=== PATIENT | female | born 1975 | race American Indian/Alaskan Native ===

== ENCOUNTER 2017-03-12 15:37 | Inpatient (IN) | payer MEDICAID ==
[2017-03-12 16:07] LABS: Basophils % (Auto) 0.7 % (0.0-1.8); Mean Corpuscular HGB Conc 30 % (30-34); Platelet Count 292 K/mm3 (140-440); Red Blood Count 5.26 M/mm3 (3.65-5.03); Red Cell Distribution Width 18.9 % (13.2-15.2); White Blood Count 11.3 K/mm3 (4.5-11.0)
[2017-03-12 16:10] LABS: Hematocrit 34.9 % (30.3-42.9); Hemoglobin 10.6 gm/dl (10.1-14.3); Mean Corpuscular Hemoglobin 20 pg (28-32); Mean Corpuscular Volume 66 fl (79-97)
[2017-03-12 16:35] LABS: Anion Gap 17 mmol/L; BUN/Creatinine Ratio 13; Blood Urea Nitrogen 9 mg/dL (7-17); Calcium 9.8 mg/dL (8.4-10.2); Carbon Dioxide 29 mmol/L (22-30); Chloride 99.3 mmol/L (98-107); Glucose 84 mg/dL (65-100); Potassium 3.4 mmol/L (3.6-5.0); Sodium 142 mmol/L (137-145)
--- NOTE | 2017-03-12 18:16 | Emergency Department Report ---
ED Chest Pain HPI - General Chief Complaint: High BP Stated Complaint: SHORTNES OF BREATH Time Seen by Provider: 03/12/17 17:43 Source: patient Mode of arrival: Ambulatory Limitations: No Limitations - History of Present Illness Initial Comments: 41 YO [place] FEMALE WITH C/O CHEST PAIN AND SHORTNESS OF BREATH FOR ONE WEEK. PT BLOOD PRESSURE WAS `198/122 ON ARRIVAL AND SHE HAS BEEN NONCOMPLIANT WITH HER BLOOD PRESSURE MEDICATION BECAUSE OF LACK OF INSURANCE . SHE BELIEVES THAT SHE SHOULD BE OF HCTZ 25MG PO QD Complaint: chest pain -: Gradual, week(s) (1) Onset: during rest Pain Location: substernal Pain Radiation: none Severity scale (0 -10): 5 - Related Data Previous Rx's Medication Instructions Recorded Last Taken Type Acetaminophen/Codeine [Tylenol #3] 1 tab PO Q6H PRN #15 tab 02/03/13 Unknown Rx Methocarbamol [Robaxin] 750 mg PO Q8H PRN #21 tablet 02/03/13 Unknown Rx Naproxen Sodium (Nf) [Anaprox DS] 550 mg PO BID PRN #14 tablet 02/03/13 Unknown Rx Hydrochlorothiazide [HCTZ] 25 mg PO QDAY #14 tablet 03/12/17 Unknown Rx Potassium Chloride 10 meq PO QDAY #14 capsule.er 03/12/17 Unknown Rx cloNIDine [Catapres] 0.1 mg PO QDAY #14 tablet 03/12/17 Unknown Rx Allergies Allergy/AdvReac Type Severity Reaction Status Date / Time No Known Allergies Allergy Unverified 02/03/13 09:09 Heart Score - HEART Score History: Slightly suspicious EKG: Normal Age: < 45 Risk factors: 1-2 risk factors Troponin: < normal limit HEART Score: 1 ED Review of Systems ROS: Stated complaint: SHORTNES OF BREATH Other details as noted in HPI ED Past Medical Hx - Past Medical History Previous Medical History?: Yes Hx Hypertension: Yes (untreated secondary to no insurance) - Surgical History Past Surgical History?: Yes Hx Cholecystectomy: Yes Additional Surgical History: right ovary, bilat knee - Social History Smoking Status: Never Smoker Substance Use Type: Alcohol - Medications Home Medications: Home Medications Medication Instructions Recorded Confirmed Last Taken Type Acetaminophen/Codeine [Tylenol #3] 1 tab PO Q6H PRN #15 tab 02/03/13 Unknown Rx Methocarbamol [Robaxin] 750 mg PO Q8H PRN #21 tablet 02/03/13 Unknown Rx Naproxen Sodium (Nf) [Anaprox DS] 550 mg PO BID PRN #14 tablet 02/03/13 Unknown Rx Hydrochlorothiazide [HCTZ] 25 mg PO QDAY #14 tablet 03/12/17 Unknown Rx Potassium Chloride 10 meq PO QDAY #14 capsule.er 03/12/17 Unknown Rx cloNIDine [Catapres] 0.1 mg PO QDAY #14 tablet 03/12/17 Unknown Rx ED Physical Exam - General Limitations: No Limitations ED Course Vital Signs 03/12/17 03/12/17 03/12/17 15:43 17:26 17:27 Temperature 98.5 F Pulse Rate 100 H 92 H Respiratory 18 15 15 Rate Blood Pressure 198/122 Blood Pressure 186/118 [Left] O2 Sat by Pulse 99 98 98 Oximetry 03/12/17 03/12/17 18:15 19:34 Temperature Pulse Rate 90 87 Respiratory 23 Rate Blood Pressure 172/101 187/117 Blood Pressure [Left] O2 Sat by Pulse 98 Oximetry ABBEY score - Abbey Score Age > 65: (0) No Aspirin use within the Past 7 Days: (0) No 3 or more CAD Risk Factors: (0) No 2 or more Angina events in past 24 hrs: (1) Yes Known CAD with more than 50% Stenosis: (0) No Elevated Cardiac Markers: (0) No ST Deviation Greater than 0.5mm: (0) No ABBEY Score: 1 ED Medical Decision Making - Lab Data Result diagrams: 03/12/17 15:54 03/12/17 15:54 - EKG Data -: EKG Interpreted by Ok EKG shows normal: sinus rhythm (MILD ATRIAL ENLARGEMENT), axis, intervals, QRS complexes, ST-T waves - Radiology Data Radiology results: report reviewed (CXR: MILD CARDIOMEGALY CTA CHEST: NO PE , NO AORTIC INJURY) - Medical Decision Making CTA OF CHEST NEGATIVE, AND CARDIAC ENZYMES ARE NEGATIVE , CXR SHOWS MILD CARDIOMEGALY., AN THERE IS NO CHF. I WILL D/C HER HOME ON BP MEDICATION TO FOLLOW UP WITH DR BANKS HER NEW PCP Critical care attestation.: If time is entered above; I have spent that time in minutes in the direct care of this critically ill patient, excluding procedure time. ED Disposition Clinical Impression: Hypokalemia, Cardiomegaly Chest pain Qualifiers: Chest pain type: unspecified Qualified Code(s): R07.9 - Chest pain, unspecified Dyspnea Qualifiers: Dyspnea type: unspecified Qualified Code(s): R06.00 - Dyspnea, unspecified Obesity Qualifiers: Obesity type: due to excess calories Serious obesity comorbidity presence: with serious comorbidity Body mass index: BMI 40.0-44.9 Disposition: TO HOME OR SELFCARE Is pt being admited?: No Does the pt Need Aspirin: No Condition: Stable Instructions: Chest Pain (ED), Obesity (ED), Hypertension (ED) Additional Instructions: PLEASE FOLLOW UP WITH YOUR DR TOMORROW AND RETURN TO THE ER IF PAIN RETURNS OR SHORTNESS OF BRATH RETURNS OR INCREASES Prescriptions: cloNIDine [Catapres] 0.1 mg PO QDAY #14 tablet Hydrochlorothiazide [HCTZ] 25 mg PO QDAY #14 tablet Potassium Chloride 10 meq PO QDAY #14 capsule.er Referrals: PRIMARY CAREMD [Primary Care Provider] - 3-5 Days Time of Disposition: 20:07
--- NOTE | 2017-03-12 18:35 | XRay Report ---
FINAL REPORT PROCEDURE: XR CHEST ROUTINE 2V TECHNIQUE: PA and lateral chest radiographs were obtained. CPT 40531 HISTORY: Shortness of breath. COMPARISON: No prior studies are available for comparison. FINDINGS: Heart: Mild cardiomegaly. Mediastinum/Vessels: Normal. Lungs/Pleural space: Normal. Mild elevation of the right diaphragm. Bony thorax: Mild degenerative changes of the spine. Other: IMPRESSION: Mild cardiomegaly. No radiographic evidence of acute cardiopulmonary disease.
[2017-03-12] MEDS ORDERED: K-DUR PO ONE (19:05)
[2017-03-12] MEDS ORDERED: APRESOLINE IV ONE (19:09)
--- NOTE | 2017-03-12 19:53 | Cat Scan Report ---
FINAL REPORT PROCEDURE: CT ANGIO CHEST TECHNIQUE: Computerized tomographic angiography of the chest was performed after the IV injection of iodinated nonionic contrast including image processing. The image data was postprocessed using 2-dimensional multiplanar reformatted (MPR) and 3-dimensional (MIP and/or volume rendered) techniques. HISTORY: CHEST PAIN and hypertension COMPARISON: No prior studies are available for comparison. FINDINGS: Heart and pericardium: No pericardial effusion or thickening. Thoracic aorta: No aneurysm or dissection is identified. Pulmonary vasculature: Limited evaluation of the pulmonary arteries due to patient motion artifact. No large central emboli are seen. Limited evaluation of the distal branches however. Lymph nodes: No enlarged thoracic lymph nodes. Lungs: Normal. Pleural space: No effusion, thickening, or pneumothorax. Musculoskeletal structures: No significant abnormality. Upper abdominal structures: No acute abnormality. IMPRESSION: No evidence of aortic aneurysm or dissection. Limited evaluation of distal pulmonary arterial branches. No large central emboli are seen.
[2017-03-12] MEDS ORDERED: CATAPRES PO ONE (20:10)
--- NOTE | 2017-03-12 22:03 | History and Physical Report ---
History of Present Illness Date of examination: 03/12/17 Date of admission: 03/12/2017 Chief complaint: chief complaint; left-sided chest pain for 1 week and also shortness of breath for 1 week. History of present illness: History of Present Illness: 41-year-old -Hungarian female with history of hypertension and arthritis comes in for left-sided chest pain of one-week duration. Pain has been intermittent in nature. Pain is about 8 on a scale of 1-10. Dull in character.patient states that it is associated with diaphoresis and palpitations and shortness of breath. No nausea or vomiting. No fever no chills. No recent travel.shortness of breath on walking for about a block. No orthopnea. No PND attacks. Past Medical History Previous Medical History?: Yes Hx Hypertension: Yes (untreated secondary to no insurance) - Surgical History Past Surgical History?: Yes Hx Cholecystectomy: Yes Additional Surgical History: right ovary, bilat knee - Social History Smoking Status: Never Smoker Substance Use Type: Alcohol Family history hypertension - Medications Home Medications: Home Medications Medication Instructions Recorded Confirmed Last Taken Type Acetaminophen/Codeine [Tylenol #3] 1 tab PO Q6H PRN #15 tab 02/03/13 Unknown Rx Methocarbamol [Robaxin] 750 mg PO Q8H PRN #21 tablet 02/03/13 Unknown Rx Naproxen Sodium (Nf) [Anaprox DS] 550 mg PO BID PRN #14 tablet 02/03/13 Unknown Rx Hydrochlorothiazide [HCTZ] 25 mg PO QDAY #14 tablet 03/12/17 Unknown Rx Potassium Chloride 10 meq PO QDAY #14 capsule.er 03/12/17 Unknown Rx cloNIDine [Catapres] 0.1 mg PO QDAY #14 tablet 03/12/17 Unknown Rx Past History Past Medical History: hypertension Medications and Allergies Allergies Allergy/AdvReac Type Severity Reaction Status Date / Time No Known Allergies Allergy Unverified 02/03/13 09:09 Home Medications Medication Instructions Recorded Confirmed Last Taken Type No Known Home Medications [No 03/12/17 03/12/17 Unknown History Reported Home Medications] Review of Systems All systems: negative Constitutional: no weight loss, no weight gain, no fever, no chills, no sweats, no night sweats Ears, nose, mouth and throat: no hoarseness, no sore throat, no swelling in mouth, no swelling in throat Breasts: deferred Cardiovascular: chest pain, palpitations, shortness of breath, dyspnea on exertion Respiratory: no cough, no cough with sputum, no excessive sputum, no hemoptysis , no shortness of breath Gastrointestinal: no abdominal pain, no nausea, no vomiting, no diarrhea, no constipation, no change in bowel habits, no hematemesis, no coffee ground emesis Genitourinary Female: no flank pain, no dysuria, no urinary frequency, no urgency, no stress incontinence Rectal: no pain Musculoskeletal: no neck stiffness, no neck pain, no shooting arm pain, no arm numbness/tingling Integumentary: no rash, no pruritis, no redness, no sores Neurological: no head injury, no transient paralysis, no paralysis, no weakness , no parathesias, no numbness Psychiatric: no anxiety, no memory loss, no change in sleep habits, no sleep disturbances Endocrine: no cold intolerance, no heat intolerance, no polyphagia, no excessive thirst, no polydipsia Hematologic/Lymphatic: no easy bruising, no easy bleeding Allergic/Immunologic: no urticaria, no allergic rhinitis, no wheezing Exam - Physical Exam Narrative exam: lying in bed comfortably - Constitutional Vitals: Temp Pulse Resp BP Pulse Ox 98.5 F 89 23 171/105 100 03/12/17 15:43 03/12/17 20:40 03/12/17 20:40 03/12/17 20:40 03/12/17 20:40 General appearance: Present: no acute distress, well-nourished - EENT Eyes: Present: PERRL ENT: hearing intact, clear oral mucosa - Neck Neck: Present: supple, normal ROM - Respiratory Respiratory effort: normal Respiratory: bilateral: CTA - Cardiovascular Heart rate: 80 Rhythm: regular (80) Heart Sounds: Present: S1 & S2. Absent: rub, click - Extremities Extremities: no ischemia, pulses intact, pulses symmetrical, No edema Peripheral Pulses: within normal limits - Abdominal General gastrointestinal: Present: soft, non-tender, non-distended, normal bowel sounds Female genitourinary: Present: normal - Rectal Rectal Exam: deferred - Integumentary Integumentary: Present: clear, warm, dry - Musculoskeletal Musculoskeletal: gait normal, strength equal bilaterally - Psychiatric Psychiatric: appropriate mood/affect, intact judgment & insight - Neurologic Neurologic: CNII-XII intact, moves all extremities - Allied Health Allied health notes reviewed: nursing Results - Labs CBC & Chem 7: 03/12/17 15:54 03/12/17 15:54 Labs: Laboratory Last Values WBC 11.3 K/mm3 (4.5-11.0) H 03/12/17 15:54 RBC 5.26 M/mm3 (3.65-5.03) H 03/12/17 15:54 Hgb 10.6 gm/dl (10.1-14.3) 03/12/17 15:54 Hct 34.9 % (30.3-42.9) 03/12/17 15:54 MCV 66 fl (79-97) L 03/12/17 15:54 MCH 20 pg (28-32) L 03/12/17 15:54 MCHC 30 % (30-34) 03/12/17 15:54 RDW 18.9 % (13.2-15.2) H 03/12/17 15:54 Plt Count 292 K/mm3 (140-440) 03/12/17 15:54 Lymph % (Auto) 24.1 % (13.4-35.0) 03/12/17 15:54 [place] % (Auto) 6.7 % (0.0-7.3) 03/12/17 15:54 Eos % (Auto) 1.0 % (0.0-4.3) 03/12/17 15:54 Baso % (Auto) 0.7 % (0.0-1.8) 03/12/17 15:54 Lymph # 2.7 K/mm3 (1.2-5.4) 03/12/17 15:54 [place] # 0.8 K/mm3 (0.0-0.8) 03/12/17 15:54 Eos # 0.1 K/mm3 (0.0-0.4) 03/12/17 15:54 Baso # 0.1 K/mm3 (0.0-0.1) 03/12/17 15:54 Seg Neutrophils % 67.5 % (40.0-70.0) 03/12/17 15:54 Seg Neutrophils # 7.6 K/mm3 (1.8-7.7) 03/12/17 15:54 D-Dimer 160.73 ng/mlDDU (0-234) 03/12/17 18:08 Sodium 142 mmol/L (137-145) 03/12/17 15:54 Potassium 3.4 mmol/L (3.6-5.0) L 03/12/17 15:54 Chloride 99.3 mmol/L (98-107) 03/12/17 15:54 Carbon Dioxide 29 mmol/L (22-30) 03/12/17 15:54 Anion Gap 17 mmol/L 03/12/17 15:54 BUN 9 mg/dL (7-17) 03/12/17 15:54 Creatinine 0.7 mg/dL (0.7-1.2) 03/12/17 15:54 Estimated GFR > 60 ml/min 03/12/17 15:54 BUN/Creatinine Ratio 13 % 03/12/17 15:54 Glucose 84 mg/dL (65-100) 03/12/17 15:54 Calcium 9.8 mg/dL (8.4-10.2) 03/12/17 15:54 Troponin T < 0.010 ng/mL (0.00-0.029) 03/12/17 15:54 NT-Pro-B Natriuret Pep 15.25 pg/mL (0-450) 03/12/17 18:08 Short CBC 03/12/17 Range/Units 15:54 WBC 11.3 H (4.5-11.0) K/mm3 Hgb 10.6 (10.1-14.3) gm/dl Hct 34.9 (30.3-42.9) % Plt Count 292 (140-440) K/mm3 BMP 03/12/17 15:54 Sodium 142 Potassium 3.4 L Chloride 99.3 Carbon Dioxide 29 BUN 9 Creatinine 0.7 Glucose 84 Calcium 9.8 Cardiac Enzymes 03/12/17 03/12/17 Range/Units 15:54 23:21 Total Creatine Kinase 51 (30-135) units/L CK-MB (CK-2) < 1.0 (0.0-4.0) ng/mL Troponin T < 0.010 < 0.010 (0.00-0.029) ng/mL - Imaging and Cardiology EKG: report reviewed (normal sinus rhythm) Chest x-ray: report reviewed (no abnormal findings) CT scan - chest: report reviewed (CTA no abnormal findings) Assessment and Plan Advance Directives: Yes (full code) VTE prophylaxis?: Chemical Plan of care discussed with patient/family: Yes - Patient Problems (1) Chest pain Current Visit: Yes Status: Acute Qualifiers: Chest pain type: unspecified Qualified Code(s): R07.9 - Chest pain, unspecified Plan to address problem: chest pain workup. Serial cardiac enzymes. Lexiscan in the morning. Differential diagnosis of gastroesophageal reflux disease to be considered. (2) Hypertension Current Visit: Yes Status: Chronic Qualifiers: Hypertension type: essential hypertension Qualified Code(s): I10 - Essential (primary) hypertension Plan to address problem: noncompliant. Patient initiated on Coreg and amlodipine and hydralazine. Patient counseled about noncompliance (3) Hypokalemia Current Visit: Yes Status: Acute Plan to address problem: supplemented (4) Dyspnea Current Visit: Yes Status: Acute Qualifiers: Dyspnea type: dyspnea on exertion Qualified Code(s): R06.09 - Other forms of dyspnea Plan to address problem: Will get echocardiogram for ejection fraction. Dyspnea probably secondary to obesity. Expect ejection fraction to be normal (5) Obesity Current Visit: Yes Status: Chronic Qualifiers: Obesity type: due to excess calories Serious obesity comorbidity presence: with serious comorbidity Body mass index: BMI 40.0-44.9 Plan to address problem: counseled (6) DVT prophylaxis Current Visit: Yes Status: Acute
[2017-03-12] MEDS ORDERED: DULCOLAX PR PRN (22:17)
[2017-03-12] MEDS ORDERED: TYLENOL PO PRN (22:17)
[2017-03-12] MEDS ORDERED: ZOFRAN IV PRN (22:17)
[2017-03-12] MEDS ORDERED: AMBIEN PO PRN (22:17)
[2017-03-12] MEDS ORDERED: MILK OF MAGNESIA PO PRN (22:17)
[2017-03-12] MEDS: PERCOCET 5/325 PO PRN (23:46)
[2017-03-12 23:57] LABS: Creatine Kinase 51 units/L (30-135)
[2017-03-12 23:59] LABS: Creatine Kinase MB < 1.0 ng/mL (0.0-4.0)
[2017-03-13] MEDS: PERCOCET 5/325 PO PRN (05:56)
[2017-03-13] MEDS ORDERED: APRESOLINE PO SCH ×2 (06:00→10:16)
[2017-03-13 06:04] LABS: Basophils % (Auto) 0.7 % (0.0-1.8); Eosinophils % (Auto) 1.2 % (0.0-4.3); Hematocrit 31.6 % (30.3-42.9); Hemoglobin 9.8 gm/dl (10.1-14.3); Mean Corpuscular HGB Conc 31 % (30-34); Platelet Count 277 K/mm3 (140-440); Red Blood Count 4.77 M/mm3 (3.65-5.03); Red Cell Distribution Width 18.8 % (13.2-15.2); White Blood Count 7.1 K/mm3 (4.5-11.0)
[2017-03-13 06:31] LABS: Alanine Aminotransferase 7 units/L (7-56); Albumin 3.4 g/dL (3.9-5); Albumin/Globulin Ratio 0.9 %; Alkaline Phosphatase 107 units/L (35-129); Anion Gap 16 mmol/L; BUN/Creatinine Ratio 11; Blood Urea Nitrogen 8 mg/dL (7-17); Calcium 9.7 mg/dL (8.4-10.2); Carbon Dioxide 27 mmol/L (22-30); Chloride 101.6 mmol/L (98-107); Glucose 107 mg/dL (65-100); Sodium 142 mmol/L (137-145)
[2017-03-13 06:35] LABS: Mean Corpuscular Hemoglobin 21 pg (28-32); Mean Corpuscular Volume 66 fl (79-97)
[2017-03-13 06:36] LABS: Creatine Kinase 45 units/L (30-135)
[2017-03-13 07:00] LABS: Creatine Kinase MB < 1.0 ng/mL (0.0-4.0)
[2017-03-13] MEDS ORDERED: K-DUR PO ONE ×2 (07:00→11:30)
[2017-03-13] MEDS: NORVASC PO SCH (09:22)
[2017-03-13] MEDS: COREG PO SCH ×2 (09:23→21:05)
[2017-03-13] MEDS: LOVENOX SUB-Q SCH (09:23)
[2017-03-13] MEDS: APRESOLINE PO SCH ×2 (10:35→21:05)
[2017-03-13 10:59] LABS: Creatine Kinase 45 units/L (30-135)
[2017-03-13 11:04] LABS: Creatine Kinase MB < 1.0 ng/mL (0.0-4.0)
[2017-03-13] MEDS ORDERED: LEXISCAN IV ONE ×2 (11:15→11:19)
[2017-03-13] MEDS: HCTZ PO SCH (13:34)
--- NOTE | 2017-03-13 16:22 | Progress Note ---
Assessment and Plan Assessment and plan: Chest pain Morbid obesity Hypertensive urgency Hypokalemia ; repleted Moderate malnutrition - Patient restarted on her blood pressure medications - Patient is advised about weight loss - Stress test and echo was done results pending DVT prophylaxis - On Lovenox Disposition - Possible discharge in the morning after her blood pressure is controlled and the results of the echo and stress test are read. History Interval history: Patient was seen and evaluated after she came back from stress test. Chest pain is getting better. Discussed the management plan with the patient. Hospitalist Physical - Physical exam Narrative exam: Not in cardiopulmonary distress. The patient is obese. Vital signs as documented. Head exam is unremarkable. No scleral icterus . Neck is without jugular venous distension, thyromegaly, or carotid bruits. Lungs are clear to auscultation. Cardiac exam reveals regular rate and Rhythm. First and second heart sounds normal. No murmurs, rubs or gallops. Abdominal exam reveals normal bowel sounds, no masses, no organomegaly and no aortic enlargement. Extremities are nonedematous and both femoral and pedal pulses are normal. INTERPRETIVE PROGRAM COORDINATOR: Alert and oriented 3. No focal weakness. - Constitutional Vitals: Temp Pulse Resp BP Pulse Ox 98.3 F 107 H 24 213/113 96 03/13/17 07:55 03/13/17 11:35 03/13/17 07:55 03/13/17 11:35 03/13/17 07:55 General appearance: Present: no acute distress, well-nourished Results - Labs CBC & Chem 7: 03/13/17 05:00 03/13/17 05:00 Labs: Laboratory Last Values WBC 7.1 K/mm3 (4.5-11.0) 03/13/17 05:00 RBC 4.77 M/mm3 (3.65-5.03) 03/13/17 05:00 Hgb 9.8 gm/dl (10.1-14.3) L 03/13/17 05:00 Hct 31.6 % (30.3-42.9) 03/13/17 05:00 MCV 66 fl (79-97) L 03/13/17 05:00 MCH 21 pg (28-32) L 03/13/17 05:00 MCHC 31 % (30-34) 03/13/17 05:00 RDW 18.8 % (13.2-15.2) H 03/13/17 05:00 Plt Count 277 K/mm3 (140-440) 03/13/17 05:00 Lymph % (Auto) 31.9 % (13.4-35.0) 03/13/17 05:00 [place] % (Auto) 7.6 % (0.0-7.3) H 03/13/17 05:00 Eos % (Auto) 1.2 % (0.0-4.3) 03/13/17 05:00 Baso % (Auto) 0.7 % (0.0-1.8) 03/13/17 05:00 Lymph # 2.3 K/mm3 (1.2-5.4) 03/13/17 05:00 [place] # 0.5 K/mm3 (0.0-0.8) 03/13/17 05:00 Eos # 0.1 K/mm3 (0.0-0.4) 03/13/17 05:00 Baso # 0.1 K/mm3 (0.0-0.1) 03/13/17 05:00 Seg Neutrophils % 58.6 % (40.0-70.0) 03/13/17 05:00 Seg Neutrophils # 4.2 K/mm3 (1.8-7.7) 03/13/17 05:00 D-Dimer 160.73 ng/mlDDU (0-234) 03/12/17 18:08 Sodium 142 mmol/L (137-145) 03/13/17 05:00 Potassium 3.0 mmol/L (3.6-5.0) L 03/13/17 05:00 Chloride 101.6 mmol/L (98-107) 03/13/17 05:00 Carbon Dioxide 27 mmol/L (22-30) 03/13/17 05:00 Anion Gap 16 mmol/L 03/13/17 05:00 BUN 8 mg/dL (7-17) 03/13/17 05:00 Creatinine 0.7 mg/dL (0.7-1.2) 03/13/17 05:00 Estimated GFR > 60 ml/min 03/13/17 05:00 BUN/Creatinine Ratio 11 % 03/13/17 05:00 Glucose 107 mg/dL (65-100) H 03/13/17 05:00 Hemoglobin A1c 5.6 % (4-6) 03/12/17 23:21 Calcium 9.7 mg/dL (8.4-10.2) 03/13/17 05:00 Magnesium 1.70 mg/dL (1.7-2.3) 03/13/17 10:25 Total Bilirubin 0.40 mg/dL (0.1-1.2) 03/13/17 05:00 AST 11 units/L (5-40) 03/13/17 05:00 ALT 7 units/L (7-56) 03/13/17 05:00 Alkaline Phosphatase 107 units/L (35-129) 03/13/17 05:00 Total Creatine Kinase 45 units/L (30-135) 03/13/17 10:19 CK-MB (CK-2) < 1.0 ng/mL (0.0-4.0) 03/13/17 10:19 CK-MB (CK-2) Rel Index 2.2 (0-4) 03/13/17 10:19 Troponin T < 0.010 ng/mL (0.00-0.029) 03/13/17 10:19 NT-Pro-B Natriuret Pep 15.25 pg/mL (0-450) 03/12/17 18:08 Total Protein 7.0 g/dL (6.3-8.2) 03/13/17 05:00 Albumin 3.4 g/dL (3.9-5) L 03/13/17 05:00 Albumin/Globulin Ratio 0.9 % 03/13/17 05:00 HCG, Qual Negative (Negative) 03/13/17 06:52 Hypokalemia
[2017-03-13] MEDS: K-DUR PO SCH (16:43)
--- NOTE | 2017-03-13 23:10 | Treadmill Report ---
INDICATION: Chest pain. ORDERING PHYSICIAN: Taina Loyd MD FINDINGS: There is no scintigraphic evidence of myocardial ischemia. There is evidence of a large-sized predominantly fixed anterior wall defect due to overlying breast attenuation artifact noted on ____ imaging. There is normal motion and wall thickening noted on gated imaging with an ejection fraction measured at 60%. CONCLUSION: 1. No scintigraphic evidence of myocardial ischemia. 2. Normal left ventricular size and systolic function. This is a low risk myocardial perfusion scan associated with 1 year cardiovascular mortality of less than 1%. JOB# [id number] DAYLIN/RENAE
[2017-03-14 06:38] LABS: Anion Gap 19 mmol/L; BUN/Creatinine Ratio 13; Blood Urea Nitrogen 9 mg/dL (7-17); Calcium 9.7 mg/dL (8.4-10.2); Carbon Dioxide 24 mmol/L (22-30); Chloride 99.4 mmol/L (98-107); Glucose 97 mg/dL (65-100); Potassium 3.3 mmol/L (3.6-5.0); Sodium 139 mmol/L (137-145)
[2017-03-14] MEDS: COREG PO SCH ×2 (08:29→10:20)
[2017-03-14] MEDS: HCTZ PO SCH ×2 (08:29→10:20)
[2017-03-14] MEDS: NORVASC PO SCH ×2 (08:30→10:21)
[2017-03-14] MEDS: K-DUR PO SCH ×2 (08:31→10:19)
[2017-03-14] MEDS: LOVENOX SUB-Q SCH ×2 (08:31→10:19)
[2017-03-14] MEDS: APRESOLINE PO SCH ×2 (08:31→14:35)
[2017-03-14 10:03] VITALS: BP 163/105
--- NOTE | 2017-03-14 10:43 | Discharge Summary ---
Providers - Providers Date of Admission: 03/12/17 22:17 Attending physician: ALANNAH HODGE MD Primary care physician: TELEPHONE INSTALLER Hospitalization Reason for admission: Chest pain, hypertensive urgency Condition: Stable Pertinent studies: CTA negative for PE Stress test negative for acute ischemia Hospital course: 41-year-old -[place] female with past medical history significant for morbid obesity, hypertension admitted to the floor for management of chest pain and hypertensive urgency. Patient ran out of her medications for a while because she lost her insurance. Cardiac enzymes are negative, EKG normal sinus rhythm, stress test was negative for acute ischemia. Patient was started with blood pressure medication and blood pressure is controlled. Patient advised about weight loss and exercise. Patient said she gets her insurance back and will continue to have follow-up as her primary care physician. Patient was hemodynamically stable at the time of discharge. Disposition: TO HOME OR SELFCARE Time spent for discharge: 31 minutes - Discharge Diagnoses (1) Hypertensive urgency, malignant Status: Acute (2) Cardiomegaly Status: Acute (3) Chest pain Status: Acute Qualifiers: Chest pain type: unspecified Qualified Code(s): R07.9 - Chest pain, unspecified (4) Hypokalemia Status: Acute (5) Obesity Status: Chronic Qualifiers: Obesity type: due to excess calories Serious obesity comorbidity presence: with serious comorbidity Body mass index: BMI 40.0-44.9 Core Measure Documentation - Palliative Care Palliative Care/ Comfort Measures: Not Applicable - Core Measures Any of the following diagnoses?: none Exam - Physical Exam Narrative exam: Not in cardiopulmonary distress. The patient is morbidly obese. Vital signs as documented. Head exam is unremarkable. No scleral icterus . Neck is without jugular venous distension, thyromegaly, or carotid bruits. Lungs are clear to auscultation. Cardiac exam reveals regular rate and Rhythm. First and second heart sounds normal. No murmurs, rubs or gallops. Abdominal exam reveals normal bowel sounds, no masses, no organomegaly and no aortic enlargement. Extremities are nonedematous and both femoral and pedal pulses are normal. GRINDER MILL OPERATOR: Alert and oriented 3. No focal weakness. - Constitutional Vitals: Temp Pulse Resp BP Pulse Ox 98.8 F 93 H 18 163/105 96 03/14/17 09:37 03/14/17 09:37 03/14/17 09:37 03/14/17 09:37 03/14/17 09:37 Plan Activity: no restrictions Weight Bearing Status: Full Weight Bearing Diet: low fat, low cholesterol, low salt Additional Instructions: Please follow @[facility] in 2weeks Follow up with: PRIMARY CAREMD [Primary Care Provider] - 14 Days Forms: Work/School Release Form Prescriptions: amLODIPine [Norvasc] 10 mg PO QDAY #30 tablet Carvedilol [Coreg] 12.5 mg PO BID #60 tablet hydrALAZINE [Apresoline TAB] 100 mg PO TID #90 tab Hydrochlorothiazide [HCTZ] 25 mg PO QDAY #30 tablet Potassium Chloride 20 meq PO DAILY #30 tablet.er
--- NOTE | 2017-03-16 14:54 | Query- Chest Pain ---
Severo Guerra____Alma Date:____03/16/17 Merchandising Consultant/CDS:____Rohit Phone#:____[phone] Exercise your independent professional judgment when responding to query. Questions asked do not imply a particular answer is desired or expected. We greatly appreciate your clarification on this issue. Clinical Documentation States: 41 year old female was admitted on 03/12/17 The discharge summary (Dr. Marquez 03/14/17) states " - Discharge Diagnoses (3) Chest pain " Clinical Findings Show: The exercise stress test states " Conclusion: No scintigraphic evidence of myocardial ischemia, Normal left ventricular size and systolic function " The echocardiography report states " Conclusons: The left ventricular chamber size is normal, mild concentric left ventricular hypertrophy is observed. The estimated ejection fraction is 55-60% " Please document the etiology of Chest Pain: [ ] Myocardial Infarction [ ] Pneumonia [ ] Mediastinitis [ x] Costochondritis [ ] Pulmonary Embolism [ ] Coronary Artery Disease [ ] GERD [ ] Other: [ ] Comment/Explanation: Present on Admission: [x ] Yes (Y) [ ] Clinically undeterminable (W) [ ] No(N) Please document response in your Progress Notes and/or Discharge Summary and indicate if the condition was present on admission. CAROLINE
--- NOTE | 2017-03-22 11:59 | Query- SIRS ---
Severo Guerra____Alma Date:____03/22/17 [employer] Bin Operator/CDS:____Leonel Phone#:___[phone] Exercise your independent professional judgment when responding to query. Questions asked do not imply a particular answer is desired or expected. We greatly appreciate your clarification on this issue. Clinical Documentation States: 41 year old female was admitted on 03/12/17 The discharge summary states " 41-year-old -Congolese female with past medical history significant for morbid obesity, hypertension admitted to the floor for management of chest pain and hypertensive urgency. Discharge Diagnoses (1) Hypertensive urgency, malignant (2) Cardiomegaly (4) Hypokalemia " Clinical Findings Show (include reference to source document): Pulse rate: 125 Respiratory rate: 42 Based on the above clinical scenario and your knowledge of the patient, please indicate the most appropriate diagnosis: [ ] SIRS (non-infectious) with Acute Organ Dysfunction [x] SIRS (non-infectious) without Acute Organ Dysfunction [ ] Other: [ ] Unable to determine [ ] Comment/Explanation: Present on Admission: [ x] Yes (Y) [ ] Clinically undeterminable (W) [ ] No (N) Please also document response in your Progress Notes and/or Discharge Summary and indicate if the condition was present on admission. CAROLINE
== END 2017-03-14 15:23 | disposition home or self-care (01) | DRG 206 ==
LOC: ED 15:37 → 4A 22:17
PROVIDERS: ADMIT Internal Medicine; ATTEND Internal Medicine
DX: M94.0 Chondrocostal junction syndrome [Tietze] (principal); K21.9 Gastro-esophageal reflux disease without esophagitis; Z68.41 Body mass index [BMI] 40.0-44.9, adult; E87.6 Hypokalemia; I16.0 Hypertensive urgency; E44.0 Moderate protein-calorie malnutrition; E66.01 Morbid (severe) obesity due to excess calories; Z90.49 Acquired absence of other specified parts of digestive tract; I11.9 Hypertensive heart disease without heart failure
CPT/HCPCS: 36415; 71020; 71275; 78452; 80048; 80053; 82550; 82553; 83036; 83735; 83880; 84484; 84703; 85025; 85379; 93005; 93010; 93017; 93306; 96374; A9502; J0360; J1650; J2785; Q9967

== ENCOUNTER 2017-06-06 05:46 | Observation (INO) | payer MEDICAID ==
--- NOTE | 2017-06-04 12:22 | Anesthesia Consultation ---
Anesthesia Consult and Med Hx Date of service: 06/04/17 - Airway Anesthetic Teeth Evaluation: Good ROM Head & Neck: Adequate Mental/Hyoid Distance: Adequate Mallampati Class: Class I Intubation Access Assessment: Good - Cardiac Exam Cardiac Exam: RRR - Pre-Operative Health Status ASA Pre-Surgery Classification: ASA3 Proposed Anesthetic Plan: General - Cardiovascular System Hx Hypertension: Yes Hx Peripheral Vascular Disease: Yes (being tested) - Central Nervous System Hx Psychiatric Problems: No - Hematic Hx Anemia: Yes - Other Systems Hx Cancer: No Hx Obesity: Yes
[2017-06-04 12:42] LABS: Basophils # (Auto) 0.1 K/mm3 (0.0-0.1); Basophils % (Auto) 0.6 % (0.0-1.8); Eosinophils # (Auto) 0.1 K/mm3 (0.0-0.4); Eosinophils % (Auto) 0.7 % (0.0-4.3); Hematocrit 24.7 % (30.3-42.9); Hemoglobin 7.3 gm/dl (10.1-14.3); Lymphocytes # (Auto) 2.6 K/mm3 (1.2-5.4); Lymphocytes % (Auto) 20.5 % (13.4-35.0); Mean Corpuscular HGB Conc 30 % (30-34); Monocytes # (Auto) 0.6 K/mm3 (0.0-0.8); Monocytes % (Auto) 4.8 % (0.0-7.3); Platelet Count 399 K/mm3 (140-440); Red Blood Count 3.75 M/mm3 (3.65-5.03); Red Cell Distribution Width 17.7 % (13.2-15.2)
[2017-06-04 12:44] LABS: Mean Corpuscular Hemoglobin 19 pg (28-32); Mean Corpuscular Volume 66 fl (79-97)
[2017-06-04 13:06] LABS: BUN/Creatinine Ratio 16; Blood Urea Nitrogen 11 mg/dL (7-17); Calcium 10.2 mg/dL (8.4-10.2); Hemolysis Index 2
--- NOTE | 2017-06-05 15:52 | History and Physical Report ---
History of Present Illness Date of examination: 06/05/17 Date of admission: 06/06/2017 Chief complaint: Abnormal uterine bleeding and anemia History of present illness: 41y/o with dysfunctional uterine bleeding. She reports flooding and passage of clots with her menses. Her vaginal bleeding so significant it has causes considerable iron deficiency anemia. Pelvic ultrasound revealed a mildly enlarged uterus of 12cm. She has elected to proceed with definitive surgical management. Past History Past Medical History: hypertension Past Surgical History: cholecystectomy, other (exploratory laparotomy/ salpingoophorectomy/; arthroscopic knee surgery) Social history: single - Obstetrical History : 9 Para: 7 Hx # Term Pregnancies: 5 Number of Pregnancies: 2 Spontaneous Abortions: 2 Induced : 0 Number of Living Children: 7 Medications and Allergies Allergies Allergy/AdvReac Type Severity Reaction Status Date / Time latex Allergy whelps Verified 06/01/17 12:26 Home Medications Medication Instructions Recorded Confirmed Last Taken Type Hydrochlorothiazide [HCTZ] 25 mg PO QDAY #30 tablet 03/14/17 06/04/17 Unknown Rx Potassium Chloride 20 meq PO DAILY #30 tablet.er 03/14/17 06/04/17 Unknown Rx amLODIPine [Norvasc] 10 mg PO QDAY #30 tablet 03/14/17 06/04/17 Unknown Rx hydrALAZINE [Apresoline TAB] 100 mg PO TID #90 tab 03/14/17 06/04/17 Unknown Rx Carvedilol [Coreg] 25 mg PO DAILY 06/04/17 06/04/17 Unknown History Active Meds: Active Medications Sodium Chloride (Nacl 0.9% 1000 Ml) 1,000 mls @ 42 mls/hr IV DIRECT DANISH Midazolam HCl (Versed) 2 mg IV PREOP NR Stop: 06/06/17 23:00 Review of Systems All systems: negative Constitutional: fatigue, weakness Genitourinary: vaginal bleeding - Vital Signs Vital signs: Vital Signs Temp Pulse Resp BP 99.2 F 84 18 150/90 06/04/17 12:00 06/04/17 12:00 06/04/17 12:00 06/04/17 12:00 Temp Pulse Resp BP Pulse Ox 99.2 F 84 18 150/90 06/04/17 12:00 06/04/17 12:00 06/04/17 12:00 06/04/17 12:00 - Physical Exam Breasts: Positive: deferred Cardiovascular: Regular rate Lungs: Positive: Clear to auscultation Abdomen: Positive: normal appearance Results Result Diagrams: 06/04/17 12:27 06/04/17 12:27 All other labs normal. Assessment and Plan - Patient Problems (1) Dysfunctional uterine bleeding Current Visit: No Status: Acute Plan to address problem: scheduled for robotic hysterectomy/salpingectomy (2) Anemia Current Visit: No Status: Acute Plan to address problem: patient will need to be transfused preoperatively
[~2017-06-06 05:46] MED LIST: ANCEF/STERILE WATER 2 GM/20 ML 2 GM/20 ML SYRINGE IV SCH; NACL 0.9% 1000 ML 1,000 ML IV SCH; NACL 0.9% 500 ML 500 ML IV ONE; VERSED IV NR
[2017-06-06] MEDS ORDERED: NACL BACTERIOSTATIC INFILTRATI ONE (06:25)
[2017-06-06] MEDS ORDERED: LACTATED RINGERS 1,000 ML IV SCH (07:00)
[2017-06-06] MEDS ORDERED: VERSED IV NR (07:00)
[2017-06-06] MEDS ORDERED: MARCAINE 0.25% INFILTRATI ONE (07:05)
[2017-06-06] MEDS ORDERED: DECADRON ONE (07:06)
[2017-06-06] MEDS ORDERED: MARCAINE 0.5% INFILTRATI ONE (07:06)
--- NOTE | 2017-06-06 07:29 | Anesthesia Day of Surgery ---
Anesthesia Day of Surgery - Day of Surgery Patient Examined: Yes Patient H&P Reviewed: Yes Patient is NPO: Yes
[2017-06-06] MEDS ORDERED: GELFOAM POWDER 1GM MM ONE ×2 (07:31→15:24)
[2017-06-06] MEDS ORDERED: THROMBIN (BOVINE) TP ONE ×2 (07:31→15:24)
[2017-06-06] MEDS ORDERED: NEOSPORIN GU IR ONE ×2 (07:31→15:24)
[2017-06-06] MEDS ORDERED: NACL 0.9% 1000 ML 1,000 ML ONE ×2 (07:47→17:01)
[2017-06-06] MEDS ORDERED: DIPRIVAN 10 MG/ML IV ONE (07:53)
[2017-06-06] MEDS ORDERED: DILAUDID ONE (07:53)
[2017-06-06] MEDS ORDERED: XYLOCAINE MPF 2% ONE (07:54)
[2017-06-06] MEDS ORDERED: ZEMURON IV ONE (07:54)
[2017-06-06] MEDS ORDERED: SUBLIMAZE IV NR (08:00)
[2017-06-06] MEDS ORDERED: ROBINUL ONE (08:00)
[2017-06-06] MEDS ORDERED: NEOSTIGMINE ONE (08:00)
[2017-06-06] MEDS ORDERED: NEO SYNEPHRINE/NS Syringe(OR USE) IV ONE (15:11)
[2017-06-06] MEDS ORDERED: ePHEDrine SULFATE ONE (15:14)
[2017-06-06] MEDS ORDERED: NACL 0.9% IR ONE ×2 (15:23→15:24)
[2017-06-06] MEDS ORDERED: ZOFRAN ONE ×2 (15:24→17:43)
[2017-06-06] MEDS ORDERED: NARCAN 0.4 MG/1 ML IV PRN (15:27)
--- NOTE | 2017-06-06 15:27 | Operative Report ---
Operative Report Operative Report: Date of surgery: 06/06/2017 Preoperative diagnoses: Dysfunctional uterine bleeding; iron deficiency anemia Postoperative diagnoses: Same as above Procedure: Robotic hysterectomy; right salpingectomy; lysis of adhesions; ovarian cystotomy Surgeon: Renetta Earl M.D. Payroll Administrative Assistant: Gerda Avila Anesthesia: Gen. endotracheal anesthesia Estimated blood loss: 50 mL Pathology: Uterus, cervix, left tube Indication: 41-year-old with dysfunctional uterine bleeding and severe menorrhagia which ultimately led to the patient having iron deficiency anemia. Procedure: The patient was taken to the operating room and given general endotracheal anesthesia without complication. She is prepped and draped in a normal sterile fashion. A bivalve speculum was placed in the patient's vagina and a single- tooth tenaculum placed on the anterior lip of the cervix. The uterus was sounded with the uterine sound. A Ostara uterine manipulator was placed in the bivalve speculum was then removed. Attention was then turned to the patient's abdomen where a millimeter supra umbilical skin incision was then made. A Veress needle was placed and peritoneal entry was verified water-filled syringe. Insufflation of the peritoneal cavity was performed with CO2 gas. The 12 mm trocar was then placed under direct visualization. An additional 8 mm trocar was placed on the patient's left and right lateral side just opposite of the supraumbilical trocar. An additional 5 mm right lateral trocar was then placed as the accessory port. General survey of the patient's abdomen and pelvis revealed multiple omental adhesions to the anterior abdominal wall. Monopolar scissors were used in order to lyse the adhesions to improve visualization. The left tube had evidence of a simple cyst. Cystotomy was performed of the left ovarian cyst with evidence of clear fluid. The patient's right tube and ovary were surgically absent. The patient was then placed in steep Trendelenburg. The da Syed robot was then engaged. A fenestrated forcep was placed in arm 2 and a vessel sealer was placed in arm 1. The surgeon then transferred to the surgical console. The tubo-ovarian ligament was then coagulated and transected. The round ligament was then coagulated and transected also. The vesicouterine peritoneum was then entered from the patient 's right side. The uterine vessels were then coagulated with the vessel sealer. The vessels were then transected . Attention was then turned to the patient's left side where the tubo-ovarian ligament and mesosalpinx were again isolated coagulated and transected. The vesical peritoneum was then entered from the left and joined in the midline. Peritoneum was reflected off of the lower uterine segment. Uterine vessels were then coagulated and then transected. The blood supply to the uterus was adequately contained, a posterior colpotomy was made. The V care ring was visualized. Posterior colpotomy was created with the monopolar scissors. The incision was continued circumferentially until anterior colpotomy was made. The cervix and uterus were amputated from the vaginal cuff. The uterus was then removed along with the tubes bilaterally through the vagina and a warm laparotomy sponge was placed and maintain the pneumoperitoneum. The vaginal cuff was then closed in a running fashion with V lock suture. Irrigation of the pelvis was performed. Gelfoam with thrombin was applied to the incision. The supraumbilical 12 mm trocar site was closed with the Chato Egan device. The skin was then reapproximated with 4-0 Monocryl. The tissue was sent to pathology which included the cervix, uterus, left fallopian tube. The patient was then successfully extubated. She was then taken to the recovery room in stable condition. All sponge laps and needle were correct x2.
[2017-06-06] MEDS ORDERED: ZOFRAN IV PRN (15:28)
[2017-06-06] MEDS ORDERED: PERCOCET 5/325 PO PRN (15:28)
[2017-06-06] MEDS ORDERED: MOTRIN PO PRN (15:28)
[2017-06-06] MEDS ORDERED: TYLENOL PO PRN (15:28)
[2017-06-06] MEDS ORDERED: MILK OF MAGNESIA PO PRN (15:28)
[2017-06-06] MEDS ORDERED: MORPHINE PCA 30MG/30ML IV SCH (16:00)
[2017-06-06] MEDS ORDERED: NORMODYNE IV ONE ×3 (16:26→18:00)
[2017-06-06] MEDS ORDERED: TORADOL ONE (16:45)
[2017-06-06] MEDS: TORADOL IV SCH ×2 (16:45→21:14)
[2017-06-06] MEDS: D5LR 1,000 ML IV SCH (22:39)
--- NOTE | 2017-06-06 23:48 | Post Anesthesia Evaluation ---
- Post Anesthesia Evaluation Patient Participated: Yes Airway Patent: Yes Stable Respiratory Function: Yes Nausea/Vomiting: No Temp > 96.8F: Yes Pain Manageable: Yes Adequeate Hydration: Yes Anesthesia Complications: No Block Receding Appropriately: Not Applicable
[2017-06-07] MEDS: TORADOL IV SCH (04:57)
[2017-06-07 05:19] LABS: Hematocrit 25.6 % (30.3-42.9); Hemoglobin 7.9 gm/dl (10.1-14.3)
[2017-06-07] MEDS: D5LR 1,000 ML IV SCH (05:28)
--- NOTE | 2017-06-07 08:38 | Progress Note ---
Assessment and Plan - Patient Problems (1) Dysfunctional uterine bleeding Current Visit: No Status: Acute Plan to address problem: Patient doing well Discharge home once meeting discharge criteria (2) Anemia Current Visit: No Status: Acute Subjective - Subjective Date of service: 06/07/17 Interval history: She states that she has not voided as of yet. She denies any nausea or vomiting. Her pain has been controlled. Patient reports: appetite normal, pain well controlled Objective - Vital Signs Latest vital signs: Vital Signs Temp Pulse Resp BP BP Pulse Ox 06/07/17 04:46 98.7 F 93 H 20 121/63 97 06/07/17 00:18 99.1 F 104 H 20 121/69 97 06/06/17 21:12 20 06/06/17 20:53 98.7 F 110 H 20 148/89 97 06/06/17 19:44 20 06/06/17 18:25 22 06/06/17 18:00 99.6 F 105 H 22 153/94 95 06/06/17 17:45 97.2 F L 96 H 22 163/100 100 06/06/17 17:30 95 H 22 170/103 99 06/06/17 17:15 91 H 22 157/96 99 06/06/17 17:05 92 H 174/102 06/06/17 17:00 97 H 20 174/102 100 06/06/17 16:45 91 H 23 190/107 99 06/06/17 16:30 89 25 H 182/94 99 06/06/17 16:27 98 H 185/97 06/06/17 16:15 99 H 25 H 188/95 100 06/06/17 16:00 97 H 23 169/91 99 06/06/17 15:55 100 H 24 179/95 99 06/06/17 15:50 98.5 F 113 H 13 162/91 99 06/06/17 12:10 99.2 F 102 H 22 146/77 96 Intake and Output 06/06/17 06/07/17 06/07/17 22:59 06:59 14:59 Intake Total 1650 1092.083 120 Output Total 3100 400 Balance -1450 692.083 120 Intake: IV 1300 852.083 D5lr 1,000 ml @ 125 mls/ 852.083 hr IV DIRECT DANISH Rx#: [id number] Intake, Free Water 240 120 Blood Product 350 Output: Urine 3100 400 Indwelling Catheter 1800 400 Uretheral (Hauser) 650 Other: Total, Output Amount 1400 400 Voiding Method Indwelling Catheter - Exam Abdomen: Present: normal appearance Incision: Present: normal - Labs Labs: Abnormal lab results 06/06/17 06/07/17 Range/Units 06:50 04:25 Hgb 7.9 L (10.1-14.3) gm/dl Hct 25.6 L (30.3-42.9) % Crossmatch See Detail
--- NOTE | 2017-06-07 08:39 | Discharge Summary ---
Providers - Providers Date of Admission: 06/06/17 15:28 Date of discharge: 06/07/17 Attending physician: PAOLO PIERRE Primary care physician: LIZETTE HUGHES Hospitalization Reason for admission: other (dysfunctional uterine bleeding and anemia) Procedure: other (robotic hysterectomy and left salpingectomy) Discharge diagnosis: other (dysfunctional uterine bleeding and anemia) Hospital course: The patient was admitted the day of surgery secondary to her severe anemia had to be transfused 2 units of packed red blood cells preoperatively. The patient underwent a robotic hysterectomy and left salpingectomy. Please see operative note for details of surgery. Postoperative course is uneventful. Condition at discharge: Good Disposition: DC-01 TO HOME OR SELFCARE - Discharge Diagnoses (1) Dysfunctional uterine bleeding Status: Acute (2) Anemia Status: Acute Plan - Discharge Medications Prescriptions: Docusate Sodium [Colace] 100 mg PO BID PRN #60 capsule PRN Reason: Constipation Ferrous Sulfate [Feosol 325 MG tab] 325 mg PO BID #60 tablet Ibuprofen [Motrin] 800 mg PO Q8HR PRN #60 tablet PRN Reason: Pain Oxycodone HCl/Acetaminophen [Percocet 7.5/325 mg] 1 each PO Q6HR PRN #45 tablet PRN Reason: Pain - Provider Discharge Summary Activity: no sex for 6 weeks, no heavy lifting 4 weeks, no strenuous exercise Diet: routine Instructions: routine Additional instructions: [] Smoking cessation referral if applicable(refer to patient education folder for contact #) [] Refer to [facility] Booklet Call your doctor immediately for: * Fever > 100.5 * Heavy vaginal bleeding ( >1 pad per hour) * Severe persistent headache * Shortness of breath * Reddened, hot, painful area to leg or breast * Drainage or odor from incision. * Keep incision clean and dry at all times and follow doctor's instructions regarding bathing/showering Follow-up with Dr. Guevara in 4 weeks - Follow up plan
[2017-06-07 18:50] VITALS: BP 126/84
== END 2017-06-07 18:30 | disposition home or self-care (01) ==
LOC: OR 05:46 → OB 15:28
PROVIDERS: ADMIT Obstetrics & Gynecology; ATTEND Obstetrics & Gynecology
DX: N93.8 Other specified abnormal uterine and vaginal bleeding (principal); D50.0 Iron deficiency anemia secondary to blood loss (chronic); I10 Essential (primary) hypertension; I73.9 Peripheral vascular disease, unspecified; E66.01 Morbid (severe) obesity due to excess calories; Z68.41 Body mass index [BMI] 40.0-44.9, adult; Z87.891 Personal history of nicotine dependence
CPT/HCPCS: 36415; 36430; 58552; 58662; 64450; 80048; 84703; 85014; 85018; 85025; 86850; 86870; 86900; 86901; 86902; 86922; 88307; 96374; 96375; 96376; A4217; A4649; G0378; J0690; J1100; J1170; J1885; J2250; J2270; J2370; J2405; J2704; J2710; J3010; J7030; J7120; J7121; P9016; S2900

== ENCOUNTER 2021-09-03 23:28 | Emergency (ER) | payer MEDICAID ==
[2021-09-04] MEDS ORDERED: hydrALAZINE 20 MG/1 ML INJ IV ONE ×2 (00:55)
--- NOTE | 2021-09-04 00:58 | Emergency Department Report ---
ED General Adult HPI - General Chief complaint: Syncope Stated complaint: SYNCOPE Time Seen by Provider: 09/04/21 00:45 Source: patient Mode of arrival: Stretcher Limitations: No Limitations - History of Present Illness Initial comments: Patient is 46-year-old female with history of hypertension. Patient brought to the emergency room via EMS for evaluation of syncope, headache and chest pain started today. Patient denied any injury. She denies any shortness of breath, fever or chills. Patient stated that she takes her blood pressure at night. P atient found to have a blood pressure of 210/100. Patient denied any focal weakness, numbness or tingling sensation. - Related Data Home Medications Medication Instructions Recorded Confirmed Last Taken carvediloL [Coreg] 25 mg PO DAILY 06/04/17 06/04/17 Unknown Previous Rx's Medication Instructions Recorded Last Taken Type Potassium Chloride 20 meq PO DAILY #30 tablet.er 03/14/17 06/06/17 05:00 Rx amLODIPine 10 mg PO QDAY #30 tablet 03/14/17 Unknown Rx hydrALAZINE [Apresoline TAB] 100 mg PO TID #90 tab 03/14/17 Unknown Rx hydroCHLOROthiazide [HCTZ] 25 mg PO QDAY #30 tablet 03/14/17 06/05/17 Rx Docusate Sodium [Colace] 100 mg PO BID PRN #60 capsule 06/07/17 Unknown Rx Ferrous Sulfate [Feosol 325 MG tab] 325 mg PO BID #60 tablet 06/07/17 Unknown Rx Ibuprofen [Motrin] 800 mg PO Q8HR PRN #60 tablet 06/07/17 Unknown Rx Oxycodone HCl/Acetaminophen 1 each PO Q6HR PRN #45 tablet 06/07/17 Unknown Rx [Percocet 7.5/325 mg] Allergies Allergy/AdvReac Type Severity Reaction Status Date / Time latex Allergy whelps Verified 06/01/17 12:26 ED Review of Systems ROS: Stated complaint: SYNCOPE Other details as noted in HPI Comment: All other systems reviewed and negative Constitutional: denies: chills, fever Respiratory: denies: cough, shortness of breath, SOB with exertion Cardiovascular: denies: chest pain, palpitations Gastrointestinal: denies: abdominal pain, nausea, vomiting, diarrhea, constip ation, hematemesis, melena, hematochezia Musculoskeletal: denies: back pain Neurological: headache. denies: weakness, numbness, abnormal gait ED Past Medical Hx - Past Medical History Previous Medical History?: Yes Hx Hypertension: Yes Hx Congestive Heart Failure: No Hx Diabetes: No Hx Asthma: No Hx COPD: No Additional medical history: Obesity - Surgical History Hx Cholecystectomy: Yes Additional Surgical History: right ovary, bilat knee. Hysterectomy - Social History Smoking Status: Never Smoker Substance Use Type: None - Medications Home Medications: Home Medications Medication Instructions Recorded Confirmed Last Taken Type Potassium Chloride 20 meq PO DAILY #30 tablet.er 03/14/17 06/06/17 06/06/17 05:00 Rx amLODIPine 10 mg PO QDAY #30 tablet 03/14/17 06/04/17 Unknown Rx hydrALAZINE [Apresoline TAB] 100 mg PO TID #90 tab 03/14/17 06/04/17 Unknown Rx hydroCHLOROthiazide [HCTZ] 25 mg PO QDAY #30 tablet 03/14/17 06/06/17 06/05/17 Rx carvediloL [Coreg] 25 mg PO DAILY 06/04/17 06/04/17 Unknown History Docusate Sodium [Colace] 100 mg PO BID PRN #60 capsule 06/07/17 Unknown Rx Ferrous Sulfate [Feosol 325 MG tab] 325 mg PO BID #60 tablet 06/07/17 Unknown Rx Ibuprofen [Motrin] 800 mg PO Q8HR PRN #60 tablet 06/07/17 Unknown Rx Oxycodone HCl/Acetaminophen 1 each PO Q6HR PRN #45 tablet 06/07/17 Unknown Rx [Percocet 7.5/325 mg] ED Physical Exam - General Limitations: No Limitations General appearance: alert, in no apparent distress - Head Head exam: Present: atraumatic, normocephalic, normal inspection - Eye Eye exam: Present: normal appearance - ENT ENT exam: Present: normal exam, normal orophraynx, mucous membranes moist - Neck Neck exam: Present: normal inspection, full ROM. Absent: tenderness, meningismus - Respiratory Respiratory exam: Present: normal lung sounds bilaterally - Cardiovascular Cardiovascular Exam: Present: regular rate, normal rhythm, normal heart sounds - GI/Abdominal GI/Abdominal exam: Present: soft, normal bowel sounds. Absent: distended, tenderness, guarding, rebound, rigid, organomegaly, mass, bruit, pulsatile mass, hernia - Extremities Exam Extremities exam: Present: normal inspection, full ROM, normal capillary refill. Absent: tenderness - Back Exam Back exam: Present: normal inspection, full ROM. Absent: CVA tenderness (R), CVA tenderness (L) - Neurological Exam Neurological exam: Present: alert, oriented X3, CN II-XII intact, normal gait, reflexes normal. Absent: motor sensory deficit - Psychiatric Psychiatric exam: Present: normal mood - Skin Skin exam: Present: warm, intact, normal color ED Course Vital Signs 09/04/21 09/04/21 09/04/21 00:34 00:39 01:06 Temperature 98 F 99.0 F Pulse Rate 87 92 H Respiratory 18 24 Rate Blood Pressure 210/100 Blood Pressure 163/96 [Left] O2 Sat by Pulse 98 98 96 Oximetry 09/04/21 09/04/21 01:28 04:07 Temperature Pulse Rate 70 95 H Respiratory 16 Rate Blood Pressure 163/96 Blood Pressure 150/82 [Left] O2 Sat by Pulse 95 Oximetry ED Medical Decision Making - Lab Data Result diagrams: 09/04/21 01:12 09/04/21 01:12 - EKG Data -: EKG Interpreted by Ok EKG shows normal: sinus rhythm Rate: normal - Radiology Data Radiology results: report reviewed - Medical Decision Making Patient is 46-year-old female with history of hypertension. Patient brought to the emergency room via EMS for evaluation of syncope, headache and chest pain started today. Patient denied any injury. She denies any shortness of breath, fever or chills. Patient stated that she takes her blood pressure at night. Patient found to have a blood pressure of 210/100. Patient denied any focal weakness, numbness or tingling sensation. Patient received hydralazine 10 mg IV with significant improvement in her blood pressure. Patient stated that her symptoms completely resolved. EKG showed no ST elevation or depression. Chest x-ray is negative for acute finding. CT brain is negative for acute finding. Labs reviewed and is unremarkable including a negative troponin x2. Patient advised to be compliant with her blood pressure medication and to follow-up with her primary doctor in the next 2 to 3 days and to return to the ER if she develop any new symptoms. Critical care attestation.: If time is entered above; I have spent that time in minutes in the direct care of this critically ill patient, excluding procedure time. ED Disposition Clinical Impression: Acute chest pain, Malignant hypertension Disposition: HOME / SELF CARE / HOMELESS Is pt being admited?: No Condition: Stable Instructions: Chest Pain (ED), Hypertension (ED), Nonspecific Chest Pain, Adult, [id number], Hypertension, Adult Referrals: TENZIN BOO MD [Primary Care Provider] - 3-5 Days
[2021-09-04 01:26] LABS: Basophils # (Auto) 0.1 K/mm3 (0.0-0.1); Basophils % (Auto) 0.6 % (0.0-1.8); Eosinophils # (Auto) 0.1 K/mm3 (0.0-0.4); Eosinophils % (Auto) 0.8 % (0.0-4.3); Hematocrit 39.8 % (30.3-42.9); Hemoglobin 12.4 gm/dl (10.1-14.3); Lymphocytes # (Auto) 1.9 K/mm3 (1.2-5.4); Mean Corpuscular HGB Conc 31 % (30-34); Mean Corpuscular Volume 80 fl (79-97); Monocytes # (Auto) 0.7 K/mm3 (0.0-0.8); Monocytes % (Auto) 6.5 % (0.0-7.3); Platelet Count 264 K/mm3 (140-440); Red Blood Count 4.97 M/mm3 (3.65-5.03); Red Cell Distribution Width 15.9 % (13.2-15.2)
[2021-09-04 01:44] LABS: BUN/Creatinine Ratio 11; Blood Urea Nitrogen 9 mg/dL (7-17); Calcium 10.9 mg/dL (8.4-10.2); Hemolysis Index 101
[2021-09-04 01:45] LABS: Alanine Aminotransferase 15 units/L (7-56)
[2021-09-04 01:46] LABS: Bilirubin,Direct < 0.2 mg/dL (0-0.2)
--- NOTE | 2021-09-04 02:17 | Cat Scan Report ---
CT HEAD WITHOUT CONTRAST INDICATION / CLINICAL INFORMATION: Syncope. TECHNIQUE: CT head was performed without administration of intravenous contrast. All CT scans at this location are performed using CT dose reduction for ALARA by means of automated exposure control. COMPARISON: None available. FINDINGS: CEREBRAL HEMISPHERES: There is no evidence of large territorial infarction or significant abnormality of vu-white matter differentiation. Ventricles within normal limits. No midline shift. Basal ciste rns patent. Moderate dural calcifications. Enlargement of the sella with empty sella appearance. HEMORRHAGE: None. CEREBELLUM / BRAINSTEM: No significant abnormality. ORBITS: No significant abnormality. SOFT TISSUES: No significant abnormality. SKULL: No significant abnormality. PARANASAL SINUSES / MASTOID AIR CELLS: Normal as visualized. ADDITIONAL FINDINGS: None. IMPRESSION: 1. No acute intracranial abnormality. 2. Enlargement of the sella with appearance of empty sella. Nonspecific finding that can be associate d with pseudotumor cerebri. Signer Name: Bc Posada II, MD Signed: 09/04/2021 2:13 AM Workstation Name: [id number]
--- NOTE | 2021-09-04 02:37 | XRay Report ---
CHEST 1 VIEW INDICATION / CLINICAL INFORMATION: Syncope. COMPARISON: Chest x-ray 03/12/2017 FINDINGS: SUPPORT DEVICES: None. HEART / MEDIASTINUM: Mild cardiomegaly. LUNGS / PLEURA: Vascular prominence within the central chest likely related in part to technique. Lef t hemidiaphragm is indistinct which may reflect atelectasis. Lungs otherwise clear for technique. BONES: No significant osseous abnormality. ADDITIONAL FINDINGS: No significant additional findings. IMPRESSION: 1. No active pulmonary disease. Atelectatic changes left lung base not excluded. Signer Name: Bc Posada II, MD Signed: 09/04/2021 2:32 AM Workstation Name: [id number]
[2021-09-04 04:08] VITALS: BP 150/82
--- NOTE | 2021-09-04 21:40 | Electrocardiograph Report ---
[facility] Test Date: 2021-09-04 Test Time: 01:00:09 Pat Name: JUAN MCCULLOUGH Department: Room: Gender: F Cardiac Care Nurse: DOC : 1975 Requested By: KOKO CONN Order Number: [id number] Reading MD: Taylor Squires Measurements Intervals [place] Rate: 94 P: ND: QRS: 116 QRSD: 86 T: -23 QT: 369 QTc: 463 Interpretive Statements Sinus rhythm Right axis deviation No previous ECG available for comparison Electronically Signed On 09-04-2021 21:40:31 EDT by Taylor Squires
== END 2021-09-04 05:58 | disposition home or self-care (01) ==
LOC: ED 23:28
DX: R07.9 Chest pain, unspecified (principal); I10 Essential (primary) hypertension; Z91.040 Latex allergy status; Z90.49 Acquired absence of other specified parts of digestive tract
CPT/HCPCS: 36415; 70450; 71045; 80048; 80076; 84484; 85025; 93005; 96374; 99285; J0360